=== PATIENT | male | born 1995 | race American Indian/Alaskan Native ===

== ENCOUNTER 2017-08-12 20:07 | Inpatient (IN) | payer MEDICAID ==
[2017-08-12 20:08] VITALS: BMI 27.3
--- NOTE | 2017-08-12 20:36 | C.PDOC ---
History Of Present Illness 21 year old male with a Hx of depression with prior psych admission at [facility] on risperdal and prozac presents to the ER with a complaint of increasing suicidal ideation with a plan to jump in front of moving traffic. Patient states he has been having a tension with his mother and at work; he also reports he has not been sleeping or eating as much as he normally does. Patient has been hearing voices telling him to kill himself; denies homicidal ideation ETOH use, or drug use. Patient has never attempted suicide in the past. Time Seen by Provider: 08/12/17 20:10 Chief Complaint (Nursing): Psychiatric Evaluation History Per: Patient History/Exam Limitations: no limitations Onset/Duration Of Symptoms: Days Current Symptoms Are (Timing): Still Present Suicide/Self Injury Attempted (Context): None Modifying Factor(s): None Associated Symptoms: Suicidal Thoughts, Suicidal Plan, Other (Hearing voices) Involuntary Hold By: None Recent travel outside of the [place]: No Past Medical History Reviewed: Historical Data, Nursing Documentation, Vital Signs Vital Signs: Last Vital Signs Temp 99.2 F 08/12/17 20:18 Pulse 81 08/12/17 20:18 Resp 20 08/12/17 20:18 BP 128/71 08/12/17 20:18 Pulse Ox 95 08/12/17 23:40 - Medical History PMH: Bipolar Disorder, Depression, Schizophrenia Surgical History: No Surg Hx - [facility] Procedures GROUP PSYCHOTHERAPY (07/22/17) INDIVIDUAL PSYCHOTHERAPY, COGNITIVE-BEHAVIORAL (07/22/17) MEDICATION MANAGEMENT (03/18/17) Family History: States: Unknown Family Hx - Social History Hx Alcohol Use: No Hx Substance Use: No - Immunization History Hx Tetanus Toxoid Vaccination: No Hx Influenza Vaccination: Yes Hx Pneumococcal Vaccination: No Review Of Systems Constitutional: Negative for: Fever, Chills Gastrointestinal: Negative for: Nausea, Vomiting, Diarrhea Psych: Positive for: Depression, Suicidal ideation Physical Exam - Physical Exam Appears: Non-toxic, No Acute Distress Skin: Normal Color, Warm, Dry, Other (No evidence of IVDA) Head: Atraumatic, Normacephalic Eye(s): bilateral: Normal Inspection, PERRL, EOMI Oral Mucosa: Moist Neck: Normal, Supple Chest: Symmetrical, No Tenderness Cardiovascular: Rhythm Regular Respiratory: Normal Breath Sounds, No Rales, No Rhonchi, No Wheezing Gastrointestinal/Abdominal: Soft, No Tenderness Neurological/Psych: Oriented x3, Normal Speech, Other (No focal deficits) ED Course And Treatment - Laboratory Results Result Diagrams: 08/12/17 20:55 08/12/17 20:55 O2 Sat by Pulse Oximetry: 95 (Room air) Pulse Ox Interpretation: Normal Medical Decision Making Medical Decision Making: Blood work and urinalysis ordered, will clear medically for crisis evaluation. Disposition - Disposition Disposition: HOSPITALIZED Disposition Time: 23:39 Condition: FAIR Forms: [facility] (Khmer) - Clinical Impression Clinical Impression: Single major depressive episode, severe, with psychosis, Bipolar disorder - Scribe Statement The provider has reviewed the documentation as recorded by the Scribe Ady Quan All medical record entries made by the Scribe were at my direction and personally dictated by me. I have reviewed the chart and agree that the record accurately reflects my personal performance of the history, physical exam, medical decision making, and the department course for this patient. I have also personally directed, reviewed, and agree with the discharge instructions and disposition. Decision To Admit - Pt Status Changed To: Hospital Disposition Of: Inpatient - Admit Certification Admit to Inpatient:: After my assessment, the patient will require hospitalization for at least two midnights. This is because of the severity of symptoms shown, intensity of services needed, and/or the medical risk in this patient being treated as an outpatient. - InPatient: Physician Admission Certification: I certify that this patient requires 2 or more midnights of care for the following reason:: major depression with psychosis - . Bed Request Type: Psychiatry Admitting Physician: Anita Valera Patient Diagnosis: Single major depressive episode, severe, with psychosis, Bipolar disorder
[2017-08-12 20:59] LABS: BASO # 0.1 K/uL (0.0-0.2); EOS # 0.1 K/uL (0.0-0.7); EOS % 1.4 % (0.0-4.0); HEMATOCRIT 41.9 % (35.0-51.0); LYMPH # 2.3 K/uL (1.0-4.3); LYMPH % 33.1 % (20.0-40.0); MEAN CELL VOLUME 81.8 fL (80.0-94.0); MEAN CORPUSCULAR HEMOGLOBIN 27.4 pg (27.0-31.0); MEAN CORPUSCULAR HGB CONC 33.5 g/dL (33.0-37.0); MEAN PLATELET VOLUME 9.5 fL (7.2-11.7); MONO # 0.5 K/uL (0.0-0.8); MONO % 6.6 % (0.0-10.0); NRBC % 0.2 % (0.0-2.0); RED CELL DISTRIBUTION WIDTH 14.7 % (11.5-14.5); WHITE BLOOD COUNT 6.9 K/uL (4.8-10.8)
[2017-08-12 21:13] LABS: RBC URINE 1 /hpf (0-3); URINE BACTERIA RARE (<OCC); URINE BILIRUBIN NEGATIVE (NEGATIVE); URINE BLOOD NEGATIVE (NEGATIVE); URINE COLOR Yellow (YELLOW); URINE GLUCOSE (UA) NORMAL (Normal); URINE KETONE NEGATIVE (NEGATIVE); URINE LEUKOCYTE ESTERASE NEG Leu/uL (Negative); URINE PROTEIN NEGATIVE (NEGATIVE); WBC URINE 1 /hpf (0-5)
[2017-08-12 21:15] LABS: ALB/GLOB RATIO 1.4 (1.0-2.1); ALCOHOL SERUM < 10 mg/dl (0-10); ALKALINE PHOSPHATASE 32 U/L (38-126); ALT/SGPT 45 U/L (21-72); AST/SGOT 32 U/L (17-59); BILIRUBIN,TOTAL 0.5 mg/dL (0.2-1.3); BLOOD UREA NITROGEN 20 mg/dL (9-20); CALCIUM 8.5 mg/dl (8.6-10.4); CARBON DIOXIDE 23 mmol/L (22-30); CHLORIDE 106 mmol/L (98-107); GFR AFRICAN-AMERICAN > 60; GLUCOSE,RANDOM 114 mg/dL (75-110); POTASSIUM 3.8 mmol/L (3.6-5.2); SODIUM 142 mmol/L (132-148); TOTAL PROTEIN 7.7 g/dL (6.3-8.3)
--- NOTE | 2017-08-13 00:37 | PCM.BM ---
<Boaz Staley - Last Filed: 08/13/17 00:35> Treatment Plan Problems - Problems identified on initial assessmt Problem 1 Date Initiated: 08/13/17 Time Initiated: 00:36 Assessment reference: NA Status: Active Priority: 1 Comment: suicidal ideations Problem 2 Date Initiated: 08/13/17 Time Initiated: 00:48 Assessment reference: NA Status: Active Priority: 2 Comment: auditory hallucinations Problem 3 Date Initiated: 08/13/17 Time Initiated: 00:49 Assessment reference: NA Status: Active Priority: 3 Comment: depression Treatment assets and liabiliti Patient Assests: cooperative, ADL independent, physically healthy, good past tx response, cognitively intact Patient Liabilities: poor support system - Milieu Protocol Maintain good personal hygiene: daily Encourage regular showers, daily Remind patient to perform daily oral care, daily Assist patient to perform ADL's Conduct patient checks and document Observation sheet: Q15 minutes Maintain personal safety: every shift Educate patient to report safety concerns to staff, every shift Monitor environment for contraband/sharps Medication safety: Monitor for expected outcome, potential side effects: every shift, Assess barriers to learning: every shift, Assess readiness for medication education: every shift <Soha Siu - Last Filed: 08/15/17 13:25> - Diagnosis (1) Single major depressive episode, severe, with psychosis Status: Acute Interventions: 08/15/17 13:25 * Assess/adjust medications daily and /or as needed * See patient on an individual basis 7x/week to assess symptoms of depression * Monitor for side effects & effectiveness of medications * * Assess/adjust medications daily and /or as needed * Discuss risks, benefits, sided effects and alternatives of medications * See patient on an individual basis 7x/week to assess level of delusional thoughts/ideation * <Evangelina Crabtree - Last Filed: 08/17/17 10:31> Family Contact Family involvement: Family/SO is involved Family contact: Patient declines to allow family contact at present Discharge/Continuing Care - Education Needs Education Needs: Patient Medication, Patient Coping Skills - Discharge Discharge Criteria: Tolerates medication w/o severe side effects, Reduction of target symptoms Discharge to:: Home - Treatment Team Participation Discussed with Family/SO: No Was Patient/Family/SO present at Treatment Team Meeting: Yes
--- NOTE | 2017-08-13 09:24 | PCM.PSYCH ---
Initial Psychiatric Evaluation - Initial Psychiatric Evaluation Type of Admission: Voluntary Legal Status: Capacity Chief Complaint (in patient's own words): I was hearing voices telling me to kill myself.' History of Present Illness and Precipitating Events: Patient is 21 AAM, who currently lives with his mother, currently unemployed with a history of depressive disorder was admitted because of depression and suicidal ideation. As per the ED notes; patient has an extensive history of inpatient psychiatric hospitalizations. He was just discharged from [facility] on 07/27/17 with the dx of Schizoaffective disorder. Patient is currently enrolled in Intensive Day Treatment program at [facility] [place]. Primary Psychiatrist is Dr. Harris. Pt was a poor historian. He was internally preoccupied and he was responding to internal stimuli during the interview. He appeared delusional, paranoid and suspicious. He reports auditory hallucinations command type telling him to kill himself. He also reports visual hallucinations seeing shadows and persecutory delusions. He reports depressed mood, poor sleep. He appears disheveled and unkempt. He remained superficially cooperative and guarded about the details. He denies any substance abuse or drinking. PMH None reported Current Medications: Active Medications Generic Name Dose Route Start Last Admin Trade Name Freq PRN Reason Stop Dose Admin Benztropine Mesylate 2 mg 08/13/17 00:28 08/13/17 09:17 Cogentin PO 2 mg Q6 PRN Administration Extra Pyramidal Symptoms Fluoxetine HCl 20 mg 08/13/17 10:00 08/13/17 09:17 Prozac PO 20 mg DAILY BRANDY Administration Haloperidol 5 mg 08/13/17 00:28 Haldol PO Q8 PRN Moderate Agitation Hydroxyzine HCl 25 mg 08/13/17 00:29 08/13/17 09:17 Atarax PO 25 mg Q6 PRN Administration Anxiety Risperidone 1 mg 08/13/17 10:00 08/13/17 09:17 Risperdal Tab PO 1 mg BID BRANDY Administration Past Psychiatric History - Past Psychiatric History Previous Treatment History: Inpatient Pertinent Medical Hx (Current Medical&Sleep Prob, Allergies): Allergies Allergy/AdvReac Type Severity Reaction Status Date / Time shellfish derived Allergy ANAPHYLAXIS Verified 08/12/17 20:26 FLUoxetine [Prozac] 20 mg PO DAILY 07/22/17 Risperidone [Risperdal M-TAB] 1 mg PO DAILY 30 Days #30 odt 07/27/17 Risperidone [Risperdal M-TAB] 2 mg PO HS 30 Days #30 odt 07/27/17 Olanzapine [Zyprexa] 5 mg PO HS 08/12/17 Review of Systems - Review of Systems All systems: reviewed and no additional remarkable complaints except - Psychiatric Psychiatric: Anxiety, Auditory Hallucinations, Depression, Hopelessness, Irritability, Paranoia, Suicidal Ideation, Visual Hallucinations Mental Status Examination - Personal Presentation Personal Presentation: Looks stated age - Affect Affect: Constricted, Depressed - Reliability in Providing Information Reliability in Providing Information: Poor, due to alteration in thoughts, Poor , due to altered mood - Speech Speech: Disorganized - Mood Mood: Depressed, Anxious - Formal Thought Process Formal Thought Process: Hallucinations, Delusions, Paranoia, Loosening of associations - Hallucinations/Delusions Hallucinations: Visual, Auditory Delusions: Persecution - Obsessions/Compulsions Obsessions: No Compulsions: No - Cognitive Functions Orientation: Person, Place, Situation, Time Sensorium: Alert Attention/Concentration: Attentive Abstract Thinking: Anderson Estimate of Intelligence: Below average Judgement: Imparied, as evidence by: Poor judgement, Imparied, as evidence by: Lack of insight into illness - Risk Risk: Suicidal, Diminished functioning - Strength & Assets Inventory Strength & Assets Inventory: Family support DSM 5 DX - DSM 5 DSM 5 Diagnosis: Schizoaffective disorder depressed type - Recommended/Plan of Treatment Treatment Recommendations and Plan of Treatment: Schizoaffective disorder depressed type CBT Psychoeducation Supportive therapy, group therapy, individual therapy Risperdal 1 mg po BID Prozac 20 mg PO Daily Cogentin 1 mg p BID Trazodone 50 mg by mouth daily at bedtime - Smoking Cessation Smoking Cessation Initiated: No
--- NOTE | 2017-08-14 13:22 | PCM.PYCHPN ---
Psychiatric Progress Note - Psychiatric Progress Note Patient seen today, length of contact: 17 min Patient Chief Complaint: "I feel better" Problems Identified/Issues Discussed: The pt is seen, chart reviewed, case discussed with staff. Support given, CBT used briefly No new symptoms reported, improving slowly and needs more time He is withdrawn, odd and has poor ingigght but luckily he takes his meds A meeting with mother arranged for Wed at 11 am No SEs from medications, risks discussed. After care discussed - CRC Medication Change: Yes Medical Record Reviewed: Yes Mental Status Examination - Cognitive Function Orientation: Person, Place, Situation, Time Memory: Impaired Attention: Poor Concentration: Poor Association: WNL Fund of Knowledge: Poor - Mood Mood: Depressed, Anxious - Affect Affect: Blunted - Speech Speech: Appropriate - Formal Thought Process Formal Thought Process: Paranoia - Suicidal Ideation Suicidal Ideation: No - Homicidal Ideation Homicidal Ideation: No Goal/Treatment Plan - Goal/Treatment Plan Need for Continued Stay: Discharge may exacerbated symptoms, Severe functional impairment Progress Toward Problem(s) and Goals/Treatment Plan: Continue medications Support and psychoeducation daily Attend groups and activities daily After care planning by FRANKLIN Estimated Date of D/C: 08/18/17
[2017-08-15 07:33] VITALS: O2SAT 97
--- NOTE | 2017-08-15 13:25 | PCM.PYCHPN ---
Psychiatric Progress Note - Psychiatric Progress Note Patient seen today, length of contact: 16 min Patient Chief Complaint: "I am OK" Problems Identified/Issues Discussed: The pt is seen, chart reviewed, case discussed with staff. No SEs from medications, risks discussed. After care discussed - CRC He was Ok in AM but then he started to get too anxious and had somatic complaints, ie vague chest pain. EKG ordered, ativan given, but he was insisting being transferred to medicine. He may have somatic delusions that he was hiding, if all comes negative (and he has no risk factors) Medication Change: Yes (ativan) Medical Record Reviewed: Yes Mental Status Examination - Cognitive Function Orientation: Person, Place, Situation, Time Memory: Impaired Attention: Poor Concentration: Poor Association: WNL Fund of Knowledge: Poor - Mood Mood: Depressed, Anxious - Affect Affect: Constricted, Depressed - Speech Speech: Appropriate - Formal Thought Process Formal Thought Process: Hallucinations, Delusions, Paranoia - Suicidal Ideation Suicidal Ideation: No - Homicidal Ideation Homicidal Ideation: No Goal/Treatment Plan - Goal/Treatment Plan Need for Continued Stay: Discharge may exacerbated symptoms, Severe functional impairment Progress Toward Problem(s) and Goals/Treatment Plan: Continue medications EKG Support and psychoeducation daily Attend groups and activities daily After care planning by FRANKLIN Estimated Date of D/C: 08/18/17
[2017-08-16 06:55] VITALS: RESP 19; TEMP 98.2
[2017-08-16] MEDS: Divalproex 500 mg DR Tab PO SCH ×2 (09:59→17:17)
[2017-08-16 16:19] VITALS: BP 127/78; PULSE 86
[2017-08-16] MEDS ORDERED: DiphenhydrAMINE 50 mg/ml Inj IM PRN (20:43)
--- NOTE | 2017-08-16 23:41 | PCM.PYCHPN ---
Psychiatric Progress Note - Psychiatric Progress Note Patient seen today, length of contact: 16 min Patient Chief Complaint: "I want to leave" Problems Identified/Issues Discussed: The pt is seen, chart reviewed, case discussed with staff. He has decompensated fast: manic as evidenced by not sleeping at all last night and still feeling energetic, grandiose, thought disordered. He is also psychotic - talking to self, hallucinating at times. Risperdal increased to 4 mg/d and depakote added Antidepressant stopped prn Ativan added He has no insight and won't take 48 hr notice back [facility] [place] Medication Change: Yes (add depakote, increase risperdal) Medical Record Reviewed: Yes Mental Status Examination - Cognitive Function Orientation: Person, Place, Situation, Time Memory: Impaired Attention: Poor Concentration: Poor Association: Loose Fund of Knowledge: Poor - Mood Mood: Anxious - Affect Affect: Constricted (odd) - Speech Speech: Pressured - Formal Thought Process Formal Thought Process: Hallucinations, Delusions, Paranoia - Suicidal Ideation Suicidal Ideation: No - Homicidal Ideation Homicidal Ideation: No Goal/Treatment Plan - Goal/Treatment Plan Need for Continued Stay: Discharge may exacerbated symptoms, Severe functional impairment Progress Toward Problem(s) and Goals/Treatment Plan: Continue medications with added doses Add depakote DC [facility] Medical w/u as neeeded Support and psychoeducation daily Attend groups and activities daily After care: IDT or CRC [facility] due to wanting to leave while manic/psychotic Estimated Date of D/C: 08/18/17
[2017-08-17] MEDS: Divalproex 500 mg DR Tab PO SCH (10:16)
[2017-08-17] MEDS ORDERED: Benzocaine/Menthol (Cepacol) Lozenge MT PRN (11:16)
--- NOTE | 2017-08-17 16:03 | PCM.PYCHDC ---
Mental Status Examination - Mental Status Examination Orientation: Person Discharge Summary - Discharge Note Consultations:: List each consultation separately and include: 1. Reason for request. 2. Findings. 3. Follow-up Summary of Hospital Course include:: 1. Description of specific treatment plan utilized for patients during their course of treatmen. 2. Summarize the time- course for resolution of acute symptoms and/or regressed behaviors. 3. Describe issues identified and worked on during hospitalization. 4. Describe medication utilized. 5. Describe medical problems identified and treated. 6. Reassessment of suicide risk - Diagnosis (1) Single major depressive episode, severe, with psychosis Current Visit: Yes Status: Acute - Final Diagnosis (DSM 5) Condition upon Discharge: FAIR Disposition: HOME/ ROUTINE Follow-up Treatment Plan: Continue medications with added doses Add depakote DC prozac Medical w/u as neeeded Support and psychoeducation daily Attend groups and activities daily After care: IDT or CRC [facility] [place] to wanting to leave while manic/psychotic
== END 2017-08-17 04:15 | disposition home or self-care (01) | DRG 430 ==
LOC: C.ER 20:07 → C.9E 23:40 → C.5E 08-13 00:11
PROVIDERS: ADMIT Psychiatry & Neurology Psychiatry; ATTEND Psychiatry & Neurology Psychiatry
PROC: GZHZZZZ Group Psychotherapy (ICD-10-PCS; principal; 2017-08-12)
PROC: GZ58ZZZ Individual Psychotherapy, Cognitive-Behavioral (ICD-10-PCS; 2017-08-12)
PROC: GZ56ZZZ Individual Psychotherapy, Supportive (ICD-10-PCS; 2017-08-12)
DX: F32.3 Major depressive disorder, single episode, severe with psychotic features (principal); R45.851 Suicidal ideations; Z81.8 Family history of other mental and behavioral disorders

== ENCOUNTER 2018-06-11 09:48 | Inpatient (IN) | payer MEDICAID ==
[2018-06-11 09:58] VITALS: BMI 29.5
[2018-06-11 11:13] LABS: BASO # 0.1 K/uL (0.0-0.2); EOS # 0.2 K/uL (0.0-0.7); EOS % 2.9 % (0.0-4.0); HEMOGLOBIN 14.2 g/dL (12.0-18.0); LYMPH # 1.2 K/uL (1.0-4.3); LYMPH % 22.2 % (20.0-40.0); MEAN CELL VOLUME 81.2 fL (80.0-94.0); MEAN CORPUSCULAR HEMOGLOBIN 27.4 pg (27.0-31.0); MEAN CORPUSCULAR HGB CONC 33.7 g/dL (33.0-37.0); MEAN PLATELET VOLUME 10.2 fL (7.2-11.7); MONO # 0.4 K/uL (0.0-0.8); MONO % 7.7 % (0.0-10.0); NEUT # 3.4 K/uL (1.8-7.0); NEUT % 66.2 % (50.0-75.0); RBC 5.18 Mil/uL (4.40-5.90); RED CELL DISTRIBUTION WIDTH 14.7 % (11.5-14.5); WHITE BLOOD COUNT 5.2 K/uL (4.8-10.8)
[2018-06-11 11:19] LABS: SQUAMOUS EPITHIAL 1 /hpf (0-5); URINE BILIRUBIN NEGATIVE (NEGATIVE); URINE BLOOD NEGATIVE (NEGATIVE); URINE CLARITY Clear (Clear); URINE COLOR Yellow (YELLOW); URINE GLUCOSE (UA) NORMAL (Normal); URINE LEUKOCYTE ESTERASE NEG Leu/uL (Negative); URINE PROTEIN NEGATIVE (NEGATIVE)
[2018-06-11 11:35] LABS: ALB/GLOB RATIO 1.4 (1.0-2.1); ALBUMIN 4.6 g/dL (3.5-5.0); ALT/SGPT 23 U/L (21-72); AST/SGOT 24 U/L (17-59); BLOOD UREA NITROGEN 19 mg/dL (9-20); CALCIUM 9.3 mg/dl (8.6-10.4); GFR NON-AFRICAN AMERICAN > 60
[2018-06-11 11:45] LABS: BENZODIAZEPINES, UR NEGATIVE (NEGATIVE); OPIATES, UR NEGATIVE (NEGATIVE); PHENCYCLIDINE, UR NEGATIVE (NEGATIVE)
[2018-06-11 12:04] LABS: BARBITURATES, UR POSITIVE (NEGATIVE)
--- NOTE | 2018-06-11 12:50 | C.PDOC ---
History Of Present Illness 22 y/o male brought to ED by EMS for evaluation of suicidal thoughts - wants to jump in front of cars to hurt himself. Patient admits to recent family related problems that have increased his stress. He denies HI, substance abuse or any physical complaints. Time Seen by Provider: 06/11/18 09:58 Chief Complaint (Nursing): Psychiatric Evaluation History Per: Patient History/Exam Limitations: no limitations Onset/Duration Of Symptoms: Unknown Current Symptoms Are (Timing): Still Present Severity: Moderate Past Medical History Reviewed: Historical Data, Nursing Documentation, Vital Signs Vital Signs: Last Vital Signs Temp 98.8 F 06/11/18 09:58 Pulse 101 H 06/11/18 09:58 Resp 18 06/11/18 09:58 BP 108/72 06/11/18 09:58 Pulse Ox 96 06/11/18 09:58 - Medical History PMH: Anxiety, Bipolar Disorder, Depression, Schizophrenia Surgical History: No Surg Hx - [facility] Procedures GROUP PSYCHOTHERAPY (05/30/18) INDIVIDUAL PSYCHOTHERAPY, COGNITIVE-BEHAVIORAL (05/30/18) INDIVIDUAL PSYCHOTHERAPY, SUPPORTIVE (08/12/17) MEDICATION MANAGEMENT (03/18/17) Family History: States: No Known Family Hx - Social History Hx Alcohol Use: No Hx Substance Use: Yes - Immunization History Hx Tetanus Toxoid Vaccination: No Hx Influenza Vaccination: No Hx Pneumococcal Vaccination: No Review Of Systems Constitutional: Negative for: Fever, Chills Cardiovascular: Negative for: Chest Pain Respiratory: Negative for: Shortness of Breath Gastrointestinal: Negative for: Abdominal Pain Skin: Negative for: Rash Psych: Positive for: Depression, Suicidal ideation. Negative for: Withdrawal Physical Exam - Physical Exam Appears: Well, Non-toxic, No Acute Distress Skin: Warm, Dry, No Rash Head: Atraumatic, Normacephalic Eye(s): bilateral: Normal Inspection Oral Mucosa: Moist Neck: Supple Cardiovascular: Rhythm Regular Respiratory: Normal Breath Sounds, No Rales, No Rhonchi, No Wheezing Gastrointestinal/Abdominal: Normal Exam, Bowel Sounds, Soft, No Tenderness Extremity: Normal ROM, No Pedal Edema, No Deformity Extremity: Bilateral: Atraumatic, Normal Color And Temperature, Normal ROM Neurological/Psych: Oriented x3 Gait: Steady ED Course And Treatment - Laboratory Results Result Diagrams: 06/11/18 11:01 06/11/18 11:01 O2 Sat by Pulse Oximetry: 96 (RA) Pulse Ox Interpretation: Normal Progress Note: Blood work, UA, UDS ordered and reviewed. 1:00pm- Patient medically cleared. Accepted by Dr. Valera for psychiatric admission - major depression. Disposition - Disposition Disposition: HOSPITALIZED Disposition Time: 13:00 Condition: STABLE - Clinical Impression Clinical Impression: Major depression - Scribe Statement The provider has reviewed the documentation as recorded by the Scribe Vinh Marley All medical record entries made by the Scribe were at my direction and personally dictated by me. I have reviewed the chart and agree that the record accurately reflects my personal performance of the history, physical exam, medical decision making, and the department course for this patient. I have also personally directed, reviewed, and agree with the discharge instructions and disposition. Decision To Admit - Pt Status Changed To: Hospital Disposition Of: Inpatient - Admit Certification Admit to Inpatient:: After my assessment, the patient will require hospitalization for at least two midnights. This is because of the severity of symptoms shown, intensity of services needed, and/or the medical risk in this patient being treated as an outpatient. - InPatient: Physician Admission Certification: I certify that this patient requires 2 or more midnights of care for the following reason:: see notes - . Bed Request Type: Psychiatry Admitting Physician: Anita Valera Patient Diagnosis: Major depression
[2018-06-11 13:07] VITALS: O2SAT 96
--- NOTE | 2018-06-11 17:04 | PCM.BM ---
<Sandra Newberry - Last Filed: 06/11/18 17:02> Treatment Plan Problems - Problems identified on initial assessmt Auditory Hallucination Date Initiated: 06/11/18 Time Initiated: 17:02 Assessment reference: NA Status: Active Suicidal Ideation Date Initiated: 06/11/18 Time Initiated: 17:02 Assessment reference: NA Status: Active Treatment assets and liabiliti Patient Assests: ADL independent, physically healthy, negotiates basic needs, cognitively intact Patient Liabilities: live alone (Homeless), poor support system, relationship conflicts (With Family), medical problems (Aspergers Syndrome, PTSD, ADHD, Bipolar) - Milieu Protocol Maintain good personal hygiene: daily Encourage regular showers, daily Remind patient to perform daily oral care, every shift Assist patient to perform ADL's Conduct patient checks and document Observation sheet: Q15 minutes (For Safety) Maintain personal safety: every shift Educate patient to report safety concerns to staff, every shift Monitor environment for contraband/sharps Medication safety: Monitor for expected outcome, potential side effects: every shift, Assess barriers to learning: every shift, Assess readiness for medication education: every shift <Anita Valera - Last Filed: 06/12/18 10:34> - Diagnosis (1) Bipolar disorder Status: Acute Interventions: 06/12/18 10:34 * Assess/adjust medications daily and /or as needed * See patient on an individual basis 7x/week to assess level of manic behaviors and stability * Discuss risks, benefits, side effects and alternatives of medications *
--- NOTE | 2018-06-12 09:34 | PCM.PSYCH ---
Initial Psychiatric Evaluation - Initial Psychiatric Evaluation Type of Admission: Voluntary Legal Status: Capacity History of Present Illness and Precipitating Events: Patient is a 22 year-old male, single with no children, who is unemployed and homeless. He is a high school graduate with special education due to his mild speech problem, came to the ED because of depression, suicidal thoughts. He states that his visual and auditory hallucinations started about a year ago. He sees things like "scary monsters" and hears voices that tell him to "kill himself". Patient denies any current suicidal or homicidal thoughts but admits that yesterday, he had suicidal thoughts with a plan to kill himself by "jumping in front of traffic". He denies any drug or alcohol use. Patient reports that he has been diagnosed with ADHD, PTSD, and Bipolar disorder. He states that he has been treated for his bipolar disorder. He says that he was taking lithium, Zyprexa, and trazodone but he stopped taking them about a couple of months ago because " they were not helping him". He states that he currently does not have a psychiatrist but he saw 3 therapist in the past. He reports being in many different psychiatric hospitals since he was a kid. He was recently discharged from [facility] inpatient psychiatric unit on June 07, 2018. Patient is highly agitated, irritable, and uneasy during the interview. He says that he is getting annoyed by being asked the same questions. He reports that he used to live in a [facility] in [place] but then he came to [place] to live with his mother and his mother "kicked him out". Patient gets irritable with more questioning and requests to be released from the unit or get transferred to another hospital. Medical hx: denies Family hx: not answered. Current Medications: Active Medications Generic Name Dose Route Start Last Admin Trade Name Freq PRN Reason Stop Dose Admin Clonazepam 1 mg 06/11/18 23:48 Klonopin PO TID PRN Agitation [place] Carbonate 300 mg 06/12/18 10:00 [place] Carbonate 300mg PO TID BRANDY Olanzapine 5 mg 06/11/18 23:45 06/12/18 00:38 Zyprexa PO 5 mg BID BRANDY Administration Pneumococcal Polyvalent Vaccine 0.5 ml 06/13/18 10:00 Pneumovax 23 Vaccine IM 06/13/18 10:01 .ONCE ONE Trazodone HCl 100 mg 06/11/18 23:45 06/12/18 00:37 Desyrel PO 100 mg HS BRANDY Administration Past Psychiatric History - Past Psychiatric History Previous Treatment History: Inpatient Pertinent Medical Hx (Current Medical&Sleep Prob, Allergies): Allergies Allergy/AdvReac Type Severity Reaction Status Date / Time FISH Allergy Verified 06/11/18 09:55 shellfish derived Allergy ANAPHYLAXIS Verified 06/11/18 09:55 nut - unspecified AdvReac Mild ITCHING Verified 06/11/18 09:55 Olanzapine [Zyprexa] 2.5 mg PO HS 08/12/17 [place] Carbonate 600 mg PO BID 05/30/18 traZODone [Desyrel] 100 mg PO HS 05/30/18 Minipress 06/11/18 Review of Systems - Review of Systems All systems: reviewed and no additional remarkable complaints except - Psychiatric Psychiatric: Anxiety, Auditory Hallucinations, Irritability, Suicidal Ideation Mental Status Examination - Personal Presentation Personal Presentation: Looks stated age - Affect Affect: Broad - Motor Activity Motor Activity: Psychomotor Agitation - Reliability in Providing Information Reliability in Providing Information: Fair - Speech Speech: Organized - Mood Mood: Anxious - Formal Thought Process Formal Thought Process: Hallucinations, Delusions - Hallucinations/Delusions Hallucinations: Auditory Delusions: Persecution - Obsessions/Compulsions Obsessions: No Compulsions: No - Cognitive Functions Orientation: Person, Place, Situation, Time Sensorium: Alert Attention/Concentration: Attentive Abstract Thinking: [place] Estimate of Intelligence: Below average Judgement: Imparied, as evidence by: Poor judgement, Imparied, as evidence by: Lack of insight into illness - Risk Risk: Suicidal, Diminished functioning - Limitations Limitations: Living alone DSM 5 DX - DSM 5 DSM 5 Diagnosis: Bipolar disorder mixed moderate - Recommended/Plan of Treatment Treatment Recommendations and Plan of Treatment: Bipolar disorder mixed moderate -CBT -Psychotherapy -Supportive therapy, group therapy, individual therapy -Atarax 25 mg PO Q6 prn -Seroquel 100 mg PO QHS -Trazodone 50 mg PO QHS prn -Depakote 250 mg PO BID
[2018-06-12 14:35] VITALS: BP 123/83; PULSE 99; RESP 20; TEMP 97.1
[2018-06-13] MEDS ORDERED: Pneumococcal 23-Valent Vaccine IM ONE (10:00)
--- NOTE | 2018-06-13 22:54 | PCM.PYCHDC ---
Mental Status Examination - Mental Status Examination Orientation: Person, Place, Situation, Time Memory: Intact Mood: Neutral Affect: Constricted Speech: Soft Attention: WNL Concentration: WNL Association: WNL Fund of Knowledge: WNL Formal Thought Process: No Impairment Description of patient's judgement and insight: good, fair Psychotic Thoughts and Behaviors: denies any AVH Suicidal Ideation: No Current Homicidal Ideation?: No Discharge Summary - Discharge Note Reason for Hospitalization: Patient is a 22 year-old male, single with no children, who is unemployed and homeless. He is a high school graduate with special education due to his mild speech problem, came to the ED because of depression, suicidal thoughts. He states that his visual and auditory hallucinations started about a year ago. He sees things like "scary monsters" and hears voices that tell him to "kill himself". Patient denies any current suicidal or homicidal thoughts but admits that yesterday, he had suicidal thoughts with a plan to kill himself by "jumping in front of traffic". He denies any drug or alcohol use. Patient reports that he has been diagnosed with ADHD, PTSD, and Bipolar disorder. He states that he has been treated for his bipolar disorder. He says that he was taking lithium, Zyprexa, and trazodone but he stopped taking them about a couple of months ago because " they were not helping him". He states that he currently does not have a psychiatrist but he saw 3 therapist in the past. He reports being in many different psychiatric hospitals since he was a kid. He was recently discharged from [facility] inpatient psychiatric unit on June 07, 2018. Patient is highly agitated, irritable, and uneasy during the interview. He says that he is getting annoyed by being asked the same questions. He reports that he used to live in a [facility] in [place] but then he came to [place] to live with his mother and his mother "kicked him out". Patient gets irritable with more questioning and requests to be released from the unit or get transferred to another hospital. Consultations:: List each consultation separately and include: 1. Reason for request. 2. Findings. 3. Follow-up Summary of Hospital Course include:: 1. Description of specific treatment plan utilized for patients during their course of treatmen. 2. Summarize the time- course for resolution of acute symptoms and/or regressed behaviors. 3. Describe issues identified and worked on during hospitalization. 4. Describe medication utilized. 5. Describe medical problems identified and treated. 6. Reassessment of suicide risk Summary of Hospital Course: Today he became increasingly irritable and demanded to get signed out AMA. He said that everyone is asking a lot of questions from him. However, patient denied any feelings of hopelessness, helplessness, and worthlessness, denied any problem with the sleep or appetite, denied suicidal ideation or homicidal ideation. Pt denied any auditory or visual hallucinations. He denied any withdrawal symptoms. - Diagnosis (1) Bipolar disorder Status: Acute - Final Diagnosis (DSM 5) Condition upon Discharge: GOOD DSM 5: Bipolar disorder mixed moderate Disposition: AGAINST MEDICAL ADVICE Follow-up Treatment Plan: Followup: He was discharged to the [facility]. Education: Pt was educated and counseled about the risks and benefits of taking and not taking medications. Pt was educated and counseled about the risks of drinking and abusing drugs. Pt was educated and counseled to go to the ER or call 911 if pt develop suicidal ideation or homicidal ideation, worsening of symptoms or severe side effects of the meds. - Smoking Cessation Smoking Cessation Medication prescribed: No - Antipsychotic Medications Pt discharged on 2 or more routine antipsychotic medications: No
== END 2018-06-12 10:00 | disposition left against medical advice (07) | DRG 753 ==
LOC: C.ER 09:48 → C.9E 13:10 → C.5E 13:36
PROVIDERS: ADMIT Psychiatry & Neurology Psychiatry; ATTEND Psychiatry & Neurology Psychiatry
PROC: GZ3ZZZZ Medication Management (ICD-10-PCS; principal; 2018-06-11)
PROC: GZHZZZZ Group Psychotherapy (ICD-10-PCS; 2018-06-11)
PROC: GZ56ZZZ Individual Psychotherapy, Supportive (ICD-10-PCS; 2018-06-11)
DX: F31.9 Bipolar disorder, unspecified (principal); R45.851 Suicidal ideations; F25.9 Schizoaffective disorder, unspecified; F43.10 Post-traumatic stress disorder, unspecified; F41.0 Panic disorder [episodic paroxysmal anxiety]; F84.0 Autistic disorder; F90.9 Attention-deficit hyperactivity disorder, unspecified type; G47.00 Insomnia, unspecified; K29.70 Gastritis, unspecified, without bleeding; Z59.0 Homelessness; Z62.810 Personal history of physical and sexual abuse in childhood